=== PATIENT | male | born 1975 | race Caucasian/White ===

== ENCOUNTER → 2021-02-22 | Outpatient (CLI) | payer BC | LOC: COL.RAD 07:31 | DX: R12 Heartburn (principal); R14.0 Abdominal distension (gaseous) ==

== ENCOUNTER 2021-06-26 13:56 | Emergency (ER) | payer BC ==
[~2021-06-26] VITALS: Ht 170.2 cm; Wt 65.9 kg
[2021-06-26 14:17] VITALS: TEMP 97.9
[2021-06-26] MEDS ORDERED: LYRICA 100MG C100 M1 PO (14:21)
[2021-06-26 14:27] LABS: COLLECTION METHOD CLEAN CATCH
[2021-06-26 14:40] LABS: MUCOUS Present (NOT PRESENT); PH 5 (5-8); SQUAMOUS EPITHELIAL None Seen /hpf (0-10); URINE APPEARANCE Clear (CLEAR/HAZY); URINE BACTERIA None Seen (NONE SEEN); URINE BILIRUBIN Negative (NEGATIVE); URINE BLOOD 3+ (NEGATIVE); URINE COLOR Yellow (YELLOW); URINE GLUCOSE Negative (NEGATIVE); URINE KETONE Negative (NEGATIVE); URINE LEUKOCYTE ESTERASE Negative (NEGATIVE); URINE NITRATE Negative (NEGATIVE); URINE PROTEIN(semi-quant) Negative (NEGATIVE); URINE RBC >50 /hpf (0-2); URINE UROBILINOGEN Negative (NEGATIVE)
[2021-06-26 15:34] LABS: BASO % 0.1 % (0.0-2.0); EOS # 0.1 K/mm3 (0.0-0.7); EOS % 0.7 % (0.0-4.0); GRAN # 6.6 K/mm3 (1.4-6.5); GRAN % 80.8 % (42.2-75.2); HEMATOCRIT 43.4 % (42.0-52.0); HEMOGLOBIN 14.6 g/dl (13.5-18.0); LYMPH % 11.9 % (20.0-51.0); MEAN CELL VOLUME 92 fl (80.0-100.0); MEAN CORPUSCULAR HEMOGLOBIN 31 pg (27-31); MEAN CORPUSCULAR HGB CONC 34 g/dl (33.0-37.0); MEAN PLATELET VOLUME 10.2 fl (7.4-10.4); MONO # 0.5 K/mm3 (0.1-0.6); MONO % 6.1 % (1.7-9.3); PLATELET COUNT 222 K/mm3 (130-400); RED BLOOD COUNT 4.72 M/mm3 (4.20-5.60); REDCELL DISTRIBUTION WIDTH-CV 12.4 % (11.5-14.5)
[2021-06-26 15:48] LABS: ALBUMIN 4.4 gm/dL (3.5-5.0); BILIRUBIN,TOTAL 0.8 mg/dL (0.2-1.2); CREATININE, serum 1.09 mg/dL (0.72-1.25); POTASSIUM 3.9 mmol/L (3.5-4.5); TOTAL PROTEIN 6.9 gm/dL (6.2-8.1)
[2021-06-26] MEDS ORDERED: NORCO 325 MG-51 TAB PO (16:52)
[2021-06-26] MEDS ORDERED: ZOFRAN ODT4 MG PO (16:52)
[2021-06-26 17:06] VITALS: BP 141/88; PULSE 77
== END 2021-06-26 17:18 | disposition home or self-care (01) ==
LOC: COL.ER 13:56
PROVIDERS: Emergency Medicine; Student in an Organized Health Care Education/Training Program
DX: N20.9 Urinary calculus, unspecified (principal); Z87.442 Personal history of urinary calculi
CPT/HCPCS: J1885; J2270; J2405; J7030; Q9967

== ENCOUNTER → 2022-12-22 | Outpatient (CLI) | payer BC ==
[~2022-12-22] MED LIST: LYRICA 100MG C100 M1 PO; NORCO 325 MG-51 TAB PO; ZOFRAN ODT4 MG PO
== END ==
LOC: COL.RAD 07:43
DX: R20.2 Paresthesia of skin (principal)

== ENCOUNTER 2024-02-26 15:33 | Day surgery (SDC) | payer BC ==
[~2024-02-26] VITALS: Ht 170.2 cm; Wt 62.4 kg
[2024-02-26] VITALS (8 sets, daily range): BP systolic 101–122; BP diastolic 62–81; PULSE 63–87; TEMP 98.5–100.4
[2024-02-26] MEDS ORDERED: fentaNYL 50 MCG/ML 2 ML VIAL IV ONE (15:45)
[2024-02-26] MEDS ORDERED: LR 1,000 ML IV SCH (16:00)
[2024-02-26] MEDS ORDERED: fentaNYL 50 MCG/ML 2 ML VIAL ONE (16:49)
[2024-02-26] MEDS ORDERED: Ondansetron 4 MG/2 ML VIAL ONE (16:50)
[2024-02-26] MEDS ORDERED: NS 10 ML IV ONE (16:50)
[2024-02-26] MEDS ORDERED: Glycopyrrolate 0.2 MG/ML 1 ML VIAL ONE (16:50)
[2024-02-26] MEDS ORDERED: Lidocaine PF 2% (20 MG/ML) 5 ML VIAL ONE (16:50)
[2024-02-26] MEDS ORDERED: dexAMETHasone 10 MG/ML VIAL ONE (16:50)
--- NOTE | 2024-02-26 17:25 | NUR ---
1630: PT STATED THE PAIN MEDICATION HAS IMPROVED HIS PAIN, BUT PAIN STILL PRESENT. PT DOES NOT WANT ANY ADDITIONAL PAIN MEDICATION AT THIS TIME. RESTING IN COT. CALL LIGHT IN REACH. , KRISTINE, AT BEDSIDE.
[2024-02-26] MEDS ORDERED: Iohexol 300 - 10 ML VIAL URETER -L ONE (17:40)
[2024-02-26] MEDS ORDERED: Hyoscyamine 0.125 MG Sublingual TAB SL PRN (17:45)
[2024-02-26] MEDS ORDERED: Acetaminophen 325 MG TAB PO PRN (17:45)
[2024-02-26] MEDS ORDERED: Naloxone 0.4 MG/ML VIAL IV PRN (17:45)
[2024-02-26] MEDS ORDERED: Ondansetron 4 MG/2 ML VIAL IV PRN ×2 (17:45→18:15)
[2024-02-26] MEDS ORDERED: LR 1,000 ML IV ONE (17:52)
[2024-02-26] MEDS ORDERED: Furosemide 40 MG/4 ML VIAL ONE (17:57)
[2024-02-26] MEDS ORDERED: Ketorolac 30 MG/ML VIAL ONE (17:57)
[2024-02-26] MEDS ORDERED: Lidocaine 2% (20 MG/ML) 20 ML UROJET UR ONE (18:02)
[2024-02-26] MEDS ORDERED: HYDROmorphone 1 MG/1 ML SYRINGE [PACU/SDC ONLY] IV PRN (18:15)
[2024-02-26] MEDS ORDERED: Morphine 2 MG/1 ML VIAL [PACU/SDC ONLY] IV PRN (18:15)
[2024-02-26] MEDS ORDERED: Meperidine 50 MG/ML 1 ML VIAL IV PRN (18:15)
[2024-02-26] MEDS ORDERED: Home oxyCODONE/Acetaminophen 5/325 MG #4 TAB/PACK PO ONE (18:30)
[2024-02-26] MEDS ORDERED: Acetaminophen 500 MG TAB PO SCH (18:37)
--- NOTE | 2024-02-26 18:45 | NUR ---
PATIENT ARRIVED TO FLOOR FROM PACU. VSS. PATIENT REPORT PAIN 2/10, NO PAIN MEDS GIVEN AT THIS TIME. PATIENT HAS NO NEEDS AT THIS TIME. PATIENT HAS HAD INTAKE OF FOOD AND WATER AND HAS URINATED. PATIENT IS OK TO DISCHARGE ORDERED IF FEELING LIKE HE IS READY.
--- NOTE | 2024-02-26 21:39 | NUR ---
PATIENT STATES THAT HE FEELS READY TO GO HOME, REQUESTING DC PAPERS. ADVISED PATIENT THIS NURSE WILL BRING DC PAPERS SOON.
== END 2024-02-26 20:10 | disposition home or self-care (01) ==
LOC: SDCO 15:33 → SURG 18:45 → SDCO 20:10 → SURG 20:10
DX: N20.1 Calculus of ureter (principal)
CPT/HCPCS: OP; C1769; J0690; J1100; J1885; J1940; J2405; J2704; J3010; J7120; Q9967

== ENCOUNTER → 2024-03-12 | Outpatient (CLI) | payer BC | LOC: MHCPAIN 10:31 | DX: M25.562 Pain in left knee (principal); M79.605 Pain in left leg; M79.604 Pain in right leg | CPT/HCPCS: G0463 ==